=== PATIENT | male | born 1935 | race Caucasian/White ===

== ENCOUNTER 2021-08-13 05:37 | Day surgery (SDC) | payer MEDICARE, BC ==
[~2021-08-13 05:37] MED LIST: Dextrose 5%-0.45% NaCl 1,000 ML IV SCH
[2021-08-13] MEDS ORDERED: Midazolam 1 MG/ML 2 ML SDV IV ONE ×2 (05:38→06:37)
[2021-08-13] MEDS ORDERED: fentaNYL 100 MCG/2 ML SDV IV ONE ×3 (05:38→06:39)
[2021-08-13] MEDS ORDERED: fentaNYL 100 MCG/2 ML SDV ONE (06:13)
[2021-08-13] MEDS ORDERED: Midazolam 1 MG/ML 2 ML SDV ONE (06:13)
== END 2021-08-13 08:57 | disposition home or self-care (01) ==
LOC: DL.ENDO 05:37
PROVIDERS: ATTEND Internal Medicine Gastroenterology
DX: K26.3 Acute duodenal ulcer without hemorrhage or perforation (principal); D50.9 Iron deficiency anemia, unspecified; E66.09 Other obesity due to excess calories; I12.9 Hypertensive chronic kidney disease with stage 1 through stage 4 chronic kidney disease, or unspecified chronic kidney disease; N18.9 Chronic kidney disease, unspecified; E11.22 Type 2 diabetes mellitus with diabetic chronic kidney disease; E78.5 Hyperlipidemia, unspecified; I25.10 Atherosclerotic heart disease of native coronary artery without angina pectoris; M72.2 Plantar fascial fibromatosis; N40.0 Benign prostatic hyperplasia without lower urinary tract symptoms; Z88.8 Allergy status to other drugs, medicaments and biological substances; Z90.49 Acquired absence of other specified parts of digestive tract; Z98.890 Other specified postprocedural states; Z01.812 Encounter for preprocedural laboratory examination; Z20.822 Contact with and (suspected) exposure to COVID-19; Z68.29 Body mass index [BMI] 29.0-29.9, adult
CPT/HCPCS: 43239; 87077; J2250; J3010; J7042; U0002

== ENCOUNTER 2021-09-07 05:37 | Day surgery (SDC) | payer MEDICARE, BC ==
[2021-09-07] MEDS ORDERED: Midazolam 1 MG/ML 2 ML SDV IV ONE ×3 (05:38→06:42)
[2021-09-07] MEDS ORDERED: fentaNYL 100 MCG/2 ML SDV IV ONE ×4 (05:38→06:52)
[2021-09-07] MEDS ORDERED: Midazolam 1 MG/ML 2 ML SDV ONE (05:39)
[2021-09-07] MEDS ORDERED: fentaNYL 100 MCG/2 ML SDV ONE (05:39)
[2021-09-07] MEDS ORDERED: Dextrose 5%-0.45% NaCl 1,000 ML IV SCH (06:05)
== END 2021-09-07 09:00 | disposition home or self-care (01) ==
LOC: DL.ENDO 05:37
PROVIDERS: ATTEND Internal Medicine Gastroenterology
DX: K57.30 Diverticulosis of large intestine without perforation or abscess without bleeding (principal); D50.9 Iron deficiency anemia, unspecified; K64.4 Residual hemorrhoidal skin tags
CPT/HCPCS: 45378; J2250; J3010; J7042

== ENCOUNTER 2022-08-30 10:16 | Emergency (ER) | payer MEDICARE, BC ==
[2022-08-30] MEDS ORDERED: Furosemide 40 MG/4 ML VIAL IV ONE ×2 (11:22→15:15)
[2022-08-30] MEDS ORDERED: Acetaminophen 325 MG Tab PO ONE (11:22)
[2022-08-30] MEDS ORDERED: Pantoprazole 40 MG in Sodium Chloride 0.9% 100 ML IV SCH (11:30)
== END 2022-08-30 19:18 | disposition home or self-care (01) ==
LOC: DL.ED 10:16
DX: E11.22 Type 2 diabetes mellitus with diabetic chronic kidney disease (principal); I12.9 Hypertensive chronic kidney disease with stage 1 through stage 4 chronic kidney disease, or unspecified chronic kidney disease; N18.30 Chronic kidney disease, stage 3 unspecified; D63.1 Anemia in chronic kidney disease; I25.10 Atherosclerotic heart disease of native coronary artery without angina pectoris; E78.00 Pure hypercholesterolemia, unspecified; N40.0 Benign prostatic hyperplasia without lower urinary tract symptoms; E66.9 Obesity, unspecified; Z88.8 Allergy status to other drugs, medicaments and biological substances; Z79.02 Long term (current) use of antithrombotics/antiplatelets; Z79.899 Other long term (current) drug therapy; Z87.891 Personal history of nicotine dependence; Z68.31 Body mass index [BMI] 31.0-31.9, adult
CPT/HCPCS: 36415; 36430; 71046; 80053; 82272; 83605; 83880; 84484; 85014; 85018; 85025; 85610; 85730; 86850; 86900; 86901; 86920; 86922; 93005; 93010; 96365; 96366; 96375; 99284; 99285-25; A9270-GY; C9113; J1940; P9016

== ENCOUNTER 2022-09-02 06:55 | Day surgery (SDC) | payer MEDICARE, BC ==
[~2022-09-02 06:55] MED LIST changes: -Dextrose 5%-0.45% NaCl 1,000 ML IV SCH; +Midazolam 1 MG/ML 2 ML SDV ONE; +fentaNYL 100 MCG/2 ML SDV ONE
[2022-09-02] MEDS ORDERED: fentaNYL 100 MCG/2 ML SDV IV ONE ×2 (06:56→08:12)
[2022-09-02] MEDS ORDERED: Midazolam 1 MG/ML 2 ML SDV IV ONE ×2 (06:56→08:12)
[2022-09-02] MEDS ORDERED: Dextrose 5%-0.45% NaCl 1,000 ML IV SCH (07:00)
== END 2022-09-02 10:15 | disposition home or self-care (01) ==
LOC: DL.ENDO 06:55
PROVIDERS: ATTEND Internal Medicine Gastroenterology
DX: K29.50 Unspecified chronic gastritis without bleeding (principal); I12.9 Hypertensive chronic kidney disease with stage 1 through stage 4 chronic kidney disease, or unspecified chronic kidney disease; N18.9 Chronic kidney disease, unspecified; E11.22 Type 2 diabetes mellitus with diabetic chronic kidney disease; D63.1 Anemia in chronic kidney disease; E78.5 Hyperlipidemia, unspecified; I25.10 Atherosclerotic heart disease of native coronary artery without angina pectoris; N40.0 Benign prostatic hyperplasia without lower urinary tract symptoms; D50.9 Iron deficiency anemia, unspecified; Z88.8 Allergy status to other drugs, medicaments and biological substances; Z95.5 Presence of coronary angioplasty implant and graft; Z98.890 Other specified postprocedural states
CPT/HCPCS: 43239; 87077; 88305; J2250; J3010; J7042

== ENCOUNTER 2022-09-13 08:18 | Emergency (ER) | payer MEDICARE, BC ==
[2022-09-13] MEDS ORDERED: Sodium Chloride 0.9% 10 ML Syringe FLUSH PRN (08:33)
[2022-09-13 09:19] LABS: CORONAVIRUS COVID-19 NAA NEGATIVE (NEGATIVE); RESPIRATORY SYNCYTIAL VIR NAA NEGATIVE (NEGATIVE)
[2022-09-13 09:20] LABS: CHLORIDE,CL 102 mmol/L (98-107); SODIUM,NA 138 mmol/L (136-145)
[2022-09-13 09:28] LABS: ESTIMATED GFR 25 mL/min (>=60)
[2022-09-13 09:50] LABS: PTT,PARTIAL THROMBOPLSTIN TIME 29.2 SEC (22.0-34.0)
== END 2022-09-13 10:39 | disposition home or self-care (01) ==
LOC: DL.ED 10:39
DX: F41.9 Anxiety disorder, unspecified (principal); G47.00 Insomnia, unspecified; I25.10 Atherosclerotic heart disease of native coronary artery without angina pectoris; E78.00 Pure hypercholesterolemia, unspecified; E11.22 Type 2 diabetes mellitus with diabetic chronic kidney disease; I12.9 Hypertensive chronic kidney disease with stage 1 through stage 4 chronic kidney disease, or unspecified chronic kidney disease; N18.9 Chronic kidney disease, unspecified; D63.1 Anemia in chronic kidney disease; N40.0 Benign prostatic hyperplasia without lower urinary tract symptoms; E66.9 Obesity, unspecified; Z68.30 Body mass index [BMI] 30.0-30.9, adult; Z88.8 Allergy status to other drugs, medicaments and biological substances; Z79.02 Long term (current) use of antithrombotics/antiplatelets; Z79.899 Other long term (current) drug therapy; Z20.822 Contact with and (suspected) exposure to COVID-19
CPT/HCPCS: 0241U; 36415; 71045; 80053; 82607; 83605; 83735; 83880; 84145; 84443; 84484; 85025; 85610; 85730; 86140; 93005; 93010; 99284; J3490

== ENCOUNTER 2023-01-29 06:53 | Emergency (ER) | payer MEDICARE, BC ==
[2023-01-29] MEDS ORDERED: Sodium Chloride 0.9% 10 ML Syringe FLUSH PRN (07:06)
[2023-01-29] MEDS ORDERED: Nitroglycerin 0.4 MG Tab.SL SL PRN (07:08)
[2023-01-29] MEDS ORDERED: Aspirin 81 MG Tab.Chew PO ONE (07:08)
[2023-01-29 07:14] LABS: BASOPHILS PERCENT AUTO 0.8 % (0.0-1.0); EOSINOPHILS PERCENT AUTO 4.2 % (1.0-3.0); HEMATOCRIT 30.9 % (40.0-54.0); HEMOGLOBIN 9.9 g/dL (14.0-18.0); LYMPHOCYTES PERCENT AUTO 29.2 % (20.5-50.1); MEAN CORPUSCULAR HEMOGLOBIN 30.3 pg (27.0-34.0); MEAN CORPUSCULAR VOLUME 94.5 fL (80-100); MONOCYTES PERCENT AUTO 10.8 % (2-8); PLATELET COUNT,PLT 195 10^3/uL (150-450); RED BLOOD CELL COUNT 3.27 10^6/uL (4.6-6.2); WHITE BLOOD CELL COUNT,WBC 5.9 10^3/uL (5.0-10.0)
[2023-01-29 07:28] LABS: A/G RATIO 0.8; ALBUMIN 3.4 g/dL (3.4-5.0); BILIRUBIN TOTAL 0.4 mg/dL (0.2-1.0); BUN/CREATININE RATIO 17.7 (No establ ref range); CALCIUM 8.7 mg/dL (8.5-10.1); CREATININE 2.03 mg/dL (0.70-1.30); EST CRCL DRUG DOSING (CG) 23.97 mL/min; PROTEIN TOTAL,TP 7.7 g/dL (6.4-8.2)
[2023-01-29] MEDS ORDERED: GI Cocktail Oral Solution 30 ML PO ONE (07:41)
== END 2023-01-29 09:58 | disposition home or self-care (01) ==
LOC: DL.ED 06:53
DX: R07.2 Precordial pain (principal); R06.02 Shortness of breath; I25.10 Atherosclerotic heart disease of native coronary artery without angina pectoris; I12.9 Hypertensive chronic kidney disease with stage 1 through stage 4 chronic kidney disease, or unspecified chronic kidney disease; E11.22 Type 2 diabetes mellitus with diabetic chronic kidney disease; N18.9 Chronic kidney disease, unspecified; E66.9 Obesity, unspecified; Z68.28 Body mass index [BMI] 28.0-28.9, adult; Z88.8 Allergy status to other drugs, medicaments and biological substances; Z79.899 Other long term (current) drug therapy; Z79.84 Long term (current) use of oral hypoglycemic drugs; Z79.02 Long term (current) use of antithrombotics/antiplatelets; Z20.822 Contact with and (suspected) exposure to COVID-19
CPT/HCPCS: 36415; 71045; 80053; 83690; 83880; 84484; 85025; 87804; 93005; 99285; A9270; U0002; J3490

== ENCOUNTER 2023-02-18 09:05 | Inpatient (IN) | payer MEDICARE, BC ==
[2023-02-18] MEDS: Sodium Chloride 0.9% 10 ML Syringe FLUSH PRN ×5 (09:16→22:39)
[2023-02-18 09:26] LABS: BASOPHILS PERCENT AUTO 0.2 % (0.0-1.0); HEMATOCRIT 30.5 % (40.0-54.0); HEMOGLOBIN 9.6 g/dL (14.0-18.0); LYMPHOCYTES PERCENT AUTO 13.8 % (20.5-50.1); MEAN CORPUSCULAR HEMOGLOBIN 28.2 pg (27.0-34.0); MEAN CORPUSCULAR HGB CONC 31.5 g/dL (33.0-35.0); MEAN CORPUSCULAR VOLUME 89.4 fL (80-100); MONOCYTES PERCENT AUTO 9.2 % (2-8); NEUTROPHILS PERCENT AUTO 75.8 % (42.2-75.2); PLATELET COUNT,PLT 364 10^3/uL (150-450); RED BLOOD CELL COUNT 3.41 10^6/uL (4.6-6.2); WHITE BLOOD CELL COUNT,WBC 8.6 10^3/uL (5.0-10.0)
[2023-02-18 09:47] LABS: INR 1.4 (0.9-1.2); PROTHROMBIN TIME 13.7 SEC (9.0-12.0); PTT,PARTIAL THROMBOPLSTIN TIME 34.8 SEC (22.0-34.0)
[2023-02-18 09:48] LABS: LACTIC ACID 1.2 mmol/L (0.4-2.0)
[2023-02-18 09:57] LABS: ALBUMIN 2.7 g/dL (3.4-5.0); ANION GAP 13.6 mEq/L (7-13); BILIRUBIN TOTAL 0.6 mg/dL (0.2-1.0); BUN/CREATININE RATIO 16.2 (No establ ref range); CALCIUM 8.3 mg/dL (8.5-10.1); CREATININE 2.41 mg/dL (0.70-1.30); EST CRCL DRUG DOSING (CG) 20.89 mL/min; MAGNESIUM 2.2 mg/dL (1.8-2.4); POTASSIUM,K 3.6 mmol/L (3.5-5.1); PROTEIN TOTAL,TP 7.5 g/dL (6.4-8.2)
[2023-02-18 09:59] LABS: A/G RATIO 0.56
[2023-02-18 10:00] LABS: C-REACTIVE PROTEIN 16.8 mg/dL (0.0-0.9)
[2023-02-18] MEDS ORDERED: Ampicillin/Sulbactam Na 3 GM in Sodium Chloride 0.9% 100 ML IV ONE (10:24)
[2023-02-18] MEDS ORDERED: Bumetanide 1 MG/4 ML MDV IVPUSH ONE (10:24)
[2023-02-18] MEDS ORDERED: Magnesium Hydroxide 400 MG/5 ML Susp 30 ML Cup PO PRN (10:50)
[2023-02-18] MEDS ORDERED: Acetaminophen 325 MG Tab PO PRN (10:50)
[2023-02-18] MEDS ORDERED: Ondansetron 4 MG/2 ML SDV IVPUSH PRN (10:50)
[2023-02-18] MEDS ORDERED: Acetaminophen/oxyCODONE 325-5 MG Tab PO PRN (10:50)
[2023-02-18] MEDS ORDERED: Bisacodyl 5 MG Tab PO PRN (10:50)
[2023-02-18] MEDS ORDERED: Albuterol/Ipratropium 3.0-0.5 MG/3 ML Neb Soln NEB PRN (10:50)
[2023-02-18] MEDS ORDERED: HYDROmorphone 0.5 MG/0.5 ML Syringe IVPUSH PRN (10:50)
[2023-02-18] MEDS ORDERED: Polyethylene Glycol 3350 Powder 17 GM Packet PO PRN (10:50)
[2023-02-18] MEDS ORDERED: guaiFENesin/Dextromethorphan 100-10 MG/5 ML Soln 5 ML Cup PO PRN (10:54)
[2023-02-18] MEDS ORDERED: Nitroglycerin 0.4 MG Tab.SL SL SCH (11:00)
[2023-02-18 11:33] LABS: APPEARANCE,URINE CLEAR (CLEAR); BILIRUBIN,URINE NEGATIVE (NEGATIVE); COLOR,URINE YELLOW (YELLOW); GLUCOSE,URINE 100 (NEGATIVE); KETONES,URINE NEGATIVE (NEGATIVE); LEUKOCYTE ESTERASE,URINE NEGATIVE (NEGATIVE); NITRITE,URINE NEGATIVE (NEGATIVE); OCCULT BLOOD,URINE NEGATIVE (NEGATIVE); PH,URINE 5.5 (5.0-9.0); PROTEIN,URINE 100 (NEGATIVE); UROBILINOGEN,URINE 0.2 mg/dL (0.2-1.0)
[2023-02-18 11:45] LABS: AMORPHOUS SEDIMENT,URINE RARE /HPF (NOT SEEN); BACTERIA,URINE RARE /HPF (0-FEW/HPF); EPITHELIAL CELLS,URINE RARE /HPF (NOT SEEN); RBC,URINE 0-5 /HPF (0-5); WBC,URINE 0-5 /HPF (0-5/HPF)
[2023-02-18] MEDS ORDERED: HYDRALAZINE 50 MG PO SCH (21:00)
[2023-02-18] MEDS ORDERED: Glimepiride 2 MG Tab PO SCH (21:00)
[2023-02-18] MEDS ORDERED: Melatonin 3 MG Tab PO PRN (21:37)
[2023-02-18] MEDS ORDERED: Flumazenil 0.1 MG/ML 5 ML MDV IVPUSH PRN (21:37)
[2023-02-18] MEDS ORDERED: LORazepam 2 MG/ML SDV IVPUSH PRN ×2 (21:37→22:35)
[2023-02-18] MEDS: traZODone 50 MG Tab PO SCH (21:46)
[2023-02-18] MEDS: amLODIPine 5 MG Tab PO SCH (21:47)
[2023-02-18] MEDS: hydrALAZINE 25 MG Tab PO SCH (22:09)
[2023-02-18] MEDS: Ampicillin/Sulbactam Na 1.5 GM in Sodium Chloride 0.9% 100 ML IV SCH (22:12)
[2023-02-19] MEDS: Sodium Chloride 0.9% 10 ML Syringe FLUSH PRN (04:10)
[2023-02-19] MEDS: Ampicillin/Sulbactam Na 1.5 GM in Sodium Chloride 0.9% 100 ML IV SCH ×4 (04:10→21:32)
[2023-02-19 06:46] LABS: BASOPHILS PERCENT AUTO 0.4 % (0.0-1.0); EOSINOPHILS PERCENT AUTO 2.2 % (1.0-3.0); HEMATOCRIT 28.5 % (40.0-54.0); HEMOGLOBIN 8.7 g/dL (14.0-18.0); LYMPHOCYTES PERCENT AUTO 12.9 % (20.5-50.1); MEAN CORPUSCULAR HEMOGLOBIN 27.5 pg (27.0-34.0); MEAN CORPUSCULAR HGB CONC 30.5 g/dL (33.0-35.0); MEAN CORPUSCULAR VOLUME 90.2 fL (80-100); MONOCYTES PERCENT AUTO 10.6 % (2-8); NEUTROPHILS PERCENT AUTO 73.9 % (42.2-75.2); PLATELET COUNT,PLT 307 10^3/uL (150-450); RED BLOOD CELL COUNT 3.16 10^6/uL (4.6-6.2); WHITE BLOOD CELL COUNT,WBC 6.8 10^3/uL (5.0-10.0)
[2023-02-19 07:27] LABS: ALBUMIN 2.4 g/dL (3.4-5.0); ANION GAP 9.7 mEq/L (7-13); BILIRUBIN TOTAL 0.4 mg/dL (0.2-1.0); BUN/CREATININE RATIO 15.5 (No establ ref range); CALCIUM 8.3 mg/dL (8.5-10.1); CREATININE 2.06 mg/dL (0.70-1.30); EST CRCL DRUG DOSING (CG) 24.44 mL/min; MAGNESIUM 2.1 mg/dL (1.8-2.4); POTASSIUM,K 3.7 mmol/L (3.5-5.1); PROTEIN TOTAL,TP 6.7 g/dL (6.4-8.2); T4 FREE 1.33 ng/dL (0.76-1.46); TSH ULTRASENSITIVE 0.66 uIU/mL (0.36-3.74)
[2023-02-19 07:38] LABS: A/G RATIO 0.56
[2023-02-19] MEDS: hydrALAZINE 25 MG Tab PO SCH ×2 (09:42→21:28)
[2023-02-19] MEDS: Metoprolol Succinate 25 MG Tab.ER PO SCH (09:43)
[2023-02-19] MEDS: Sertraline 50 MG Tab PO SCH (09:44)
[2023-02-19] MEDS: Isosorbide Mononitrate 30 MG Tab.ER PO SCH (09:45)
[2023-02-19] MEDS: Omeprazole 20 MG Cap.CR PO SCH (09:45)
[2023-02-19] MEDS: Glimepiride 2 MG Tab PO SCH ×2 (09:45→16:15)
[2023-02-19] MEDS: Calcium Carbonate/Vitamin D3 1250 MG-5 MCG Tab PO SCH (09:45)
[2023-02-19] MEDS: Multivitamin Tab PO SCH (09:45)
[2023-02-19] MEDS ORDERED: Lidocaine 1% 5 ML VIAL ONE (11:50)
[2023-02-19] MEDS ORDERED: EPINEPHrine 1:10,000 1 MG/10 ML Syringe ONE (11:51)
[2023-02-19] MEDS ORDERED: Bisacodyl 10 MG Supp RECTAL PRN (12:33)
[2023-02-19] MEDS ORDERED: Ampicillin/Sulbactam Na 1.5 GM in Sodium Chloride 0.9% 100 ML IV SCH (20:00)
[2023-02-19] MEDS: amLODIPine 5 MG Tab PO SCH (21:27)
[2023-02-19] MEDS: Sennosides/Docusate Sodium 50-8.6 MG Tab PO SCH (21:28)
[2023-02-19] MEDS: traZODone 50 MG Tab PO SCH (21:29)
[2023-02-20] MEDS: Ampicillin/Sulbactam Na 1.5 GM in Sodium Chloride 0.9% 100 ML IV SCH ×4 (03:52→21:22)
[2023-02-20 06:25] LABS: BASOPHILS PERCENT AUTO 0.5 % (0.0-1.0); EOSINOPHILS PERCENT AUTO 2.9 % (1.0-3.0); HEMATOCRIT 28.5 % (40.0-54.0); HEMOGLOBIN 8.7 g/dL (14.0-18.0); LYMPHOCYTES PERCENT AUTO 20.7 % (20.5-50.1); MEAN CORPUSCULAR HEMOGLOBIN 27.7 pg (27.0-34.0); MEAN CORPUSCULAR HGB CONC 30.5 g/dL (33.0-35.0); MEAN CORPUSCULAR VOLUME 90.8 fL (80-100); MONOCYTES PERCENT AUTO 9.7 % (2-8); NEUTROPHILS PERCENT AUTO 66.2 % (42.2-75.2); PLATELET COUNT,PLT 292 10^3/uL (150-450); RED BLOOD CELL COUNT 3.14 10^6/uL (4.6-6.2); WHITE BLOOD CELL COUNT,WBC 6.2 10^3/uL (5.0-10.0)
[2023-02-20 06:46] LABS: CALCIUM 8.3 mg/dL (8.5-10.1); CREATININE 1.98 mg/dL (0.70-1.30); EST CRCL DRUG DOSING (CG) 25.43 mL/min
[2023-02-20] MEDS: Glimepiride 2 MG Tab PO SCH ×2 (09:26→20:46)
[2023-02-20] MEDS: Sertraline 50 MG Tab PO SCH (09:26)
[2023-02-20] MEDS: Calcium Carbonate/Vitamin D3 1250 MG-5 MCG Tab PO SCH (09:36)
[2023-02-20] MEDS: Isosorbide Mononitrate 30 MG Tab.ER PO SCH (09:36)
[2023-02-20] MEDS: Omeprazole 20 MG Cap.CR PO SCH (09:37)
[2023-02-20] MEDS: Multivitamin Tab PO SCH (09:37)
[2023-02-20] MEDS: Metoprolol Succinate 25 MG Tab.ER PO SCH (12:40)
[2023-02-20] MEDS: hydrALAZINE 25 MG Tab PO SCH ×2 (12:40→20:54)
[2023-02-20] MEDS: amLODIPine 5 MG Tab PO SCH (20:54)
[2023-02-20] MEDS: Sennosides/Docusate Sodium 50-8.6 MG Tab PO SCH (20:55)
[2023-02-20] MEDS: traZODone 50 MG Tab PO SCH (20:55)
[2023-02-20] MEDS: Sodium Chloride 0.9% 10 ML Syringe FLUSH PRN (20:55)
[2023-02-21] MEDS: Ampicillin/Sulbactam Na 1.5 GM in Sodium Chloride 0.9% 100 ML IV SCH ×2 (03:59→09:43)
[2023-02-21 06:47] LABS: BASOPHILS PERCENT AUTO 0.3 % (0.0-1.0); EOSINOPHILS PERCENT AUTO 4.2 % (1.0-3.0); HEMATOCRIT 28.3 % (40.0-54.0); HEMOGLOBIN 8.5 g/dL (14.0-18.0); LYMPHOCYTES PERCENT AUTO 21.3 % (20.5-50.1); MEAN CORPUSCULAR HEMOGLOBIN 27.1 pg (27.0-34.0); MEAN CORPUSCULAR VOLUME 90.1 fL (80-100); MONOCYTES PERCENT AUTO 8.6 % (2-8); NEUTROPHILS PERCENT AUTO 65.6 % (42.2-75.2); PLATELET COUNT,PLT 266 10^3/uL (150-450); RED BLOOD CELL COUNT 3.14 10^6/uL (4.6-6.2)
[2023-02-21 06:59] LABS: C-REACTIVE PROTEIN 6.5 mg/dL (0.0-0.9); CALCIUM 8.1 mg/dL (8.5-10.1); CREATININE 1.89 mg/dL (0.70-1.30); EST CRCL DRUG DOSING (CG) 26.64 mL/min
[2023-02-21] MEDS: Metoprolol Succinate 25 MG Tab.ER PO SCH (09:06)
[2023-02-21] MEDS: Sertraline 50 MG Tab PO SCH (09:06)
[2023-02-21] MEDS: Calcium Carbonate/Vitamin D3 1250 MG-5 MCG Tab PO SCH (09:07)
[2023-02-21] MEDS: Omeprazole 20 MG Cap.CR PO SCH (09:07)
[2023-02-21] MEDS: Isosorbide Mononitrate 30 MG Tab.ER PO SCH (09:07)
[2023-02-21] MEDS: Multivitamin Tab PO SCH (09:07)
[2023-02-21] MEDS: Glimepiride 2 MG Tab PO SCH (09:07)
[2023-02-21] MEDS: hydrALAZINE 25 MG Tab PO SCH (09:13)
[2023-02-22 15:46] LABS: BASO'S 0 x10-3 ul; EO'S 6 x10-3 ul; LYMPH'S 61 x10-3 ul; MONO'S 79 x10-3 ul; OTHER 336 x10-3 ul; PMN'S 128 x10-3 ul
== END 2023-02-21 16:45 | disposition home or self-care (01) | DRG 193 ==
LOC: DL.ED 09:05 → DL.MS 10:29 → UNDOADMIN 10:29
PROVIDERS: ADMIT Internal Medicine; ATTEND Internal Medicine
PROC: 0W9B3ZZ Drainage of Left Pleural Cavity, Percutaneous Approach (ICD-10-PCS; principal; 2023-02-19)
PROC: 0W993ZZ Drainage of Right Pleural Cavity, Percutaneous Approach (ICD-10-PCS; 2023-02-19)
DX: J18.9 Pneumonia, unspecified organism (principal); J96.01 Acute respiratory failure with hypoxia; I13.0 Hypertensive heart and chronic kidney disease with heart failure and stage 1 through stage 4 chronic kidney disease, or unspecified chronic kidney disease; J90 Pleural effusion, not elsewhere classified; J98.11 Atelectasis; R09.02 Hypoxemia; E11.9 Type 2 diabetes mellitus without complications; D68.9 Coagulation defect, unspecified; I25.110 Atherosclerotic heart disease of native coronary artery with unstable angina pectoris; D50.9 Iron deficiency anemia, unspecified; E11.65 Type 2 diabetes mellitus with hyperglycemia; I50.9 Heart failure, unspecified; I25.10 Atherosclerotic heart disease of native coronary artery without angina pectoris; N18.30 Chronic kidney disease, stage 3 unspecified; D63.1 Anemia in chronic kidney disease; E11.22 Type 2 diabetes mellitus with diabetic chronic kidney disease; E11.40 Type 2 diabetes mellitus with diabetic neuropathy, unspecified; N40.0 Benign prostatic hyperplasia without lower urinary tract symptoms; H91.90 Unspecified hearing loss, unspecified ear; F32.9 Major depressive disorder, single episode, unspecified; E78.00 Pure hypercholesterolemia, unspecified; E66.9 Obesity, unspecified; R79.82 Elevated C-reactive protein (CRP); G47.00 Insomnia, unspecified; I48.91 Unspecified atrial fibrillation; Z68.28 Body mass index [BMI] 28.0-28.9, adult; Z95.5 Presence of coronary angioplasty implant and graft; Z99.81 Dependence on supplemental oxygen; Z79.02 Long term (current) use of antithrombotics/antiplatelets; Z79.899 Other long term (current) drug therapy; Z88.8 Allergy status to other drugs, medicaments and biological substances; Z90.49 Acquired absence of other specified parts of digestive tract; Z98.890 Other specified postprocedural states
CPT/HCPCS: 36415; 71045; 80048; 80053; 81001; 82306; 83605; 83735; 83880; 84145; 84439; 84443; 84484; 85025; 85610; 85730; 86140; 87070; 88112; 88305; 89051; 93005; 93010; 94010; 94060; 94640; 94667; 97165-GO; 99223; 99233; 99238; 99285; A9270-GY; J0295; J1170; J2060; J3490; J7620-GY

== ENCOUNTER 2023-03-27 19:50 | Emergency (ER) | payer MEDICARE, BC ==
[2023-03-27] MEDS ORDERED: Sodium Chloride 0.9% 10 ML Syringe FLUSH PRN (19:56)
[2023-03-27 20:17] LABS: BASOPHILS PERCENT AUTO 0.5 % (0.0-1.0); EOSINOPHILS PERCENT AUTO 2.3 % (1.0-3.0); HEMATOCRIT 26.6 % (40.0-54.0); HEMOGLOBIN 8.1 g/dL (14.0-18.0); MEAN CORPUSCULAR HEMOGLOBIN 26.1 pg (27.0-34.0); MEAN CORPUSCULAR HGB CONC 30.5 g/dL (33.0-35.0); MEAN CORPUSCULAR VOLUME 85.8 fL (80-100); NEUTROPHILS PERCENT AUTO 74.2 % (42.2-75.2); PLATELET COUNT,PLT 188 10^3/uL (150-450); WHITE BLOOD CELL COUNT,WBC 6.5 10^3/uL (5.0-10.0)
[2023-03-27 20:39] LABS: LACTIC ACID 0.9 mmol/L (0.4-2.0)
[2023-03-27 20:42] LABS: ALANINE AMINOTRANSFERASE,ALT 10 U/L (16-63); ALBUMIN 2.7 g/dL (3.4-5.0); ALKALINE PHOSPHATASE 71 U/L (46-116); ANION GAP 10.4 mEq/L (7-13); ASPARTATE AMNIOTRANSFERASE,AST 11 U/L (15-37); BILIRUBIN TOTAL 0.8 mg/dL (0.2-1.0); BLOOD UREA NITROGEN,BUN 26 mg/dL (7-18); BUN/CREATININE RATIO 14.5 (No establ ref range); CALCIUM 8.3 mg/dL (8.5-10.1); CARBON DIOXIDE,CO2 29 mmol/L (21-32); CHLORIDE,CL 102 mmol/L (98-107); CREATININE 1.79 mg/dL (0.70-1.30); GLUCOSE RANDOM 287 mg/dL (70-99); POTASSIUM,K 4.4 mmol/L (3.5-5.1); SODIUM,NA 137 mmol/L (136-145)
[2023-03-27 20:43] LABS: A/G RATIO 0.63; C-REACTIVE PROTEIN 12.3 mg/dL (0.0-0.9); ESTIMATED GFR 36 mL/min (>=60)
[2023-03-27 20:47] LABS: B-TYPE NATRIURETIC PEPTIDE,BNP 954 pg/ml (0-100)
== END 2023-03-27 21:30 | disposition home or self-care (01) ==
LOC: DL.ED 19:50
DX: J81.0 Acute pulmonary edema (principal); I13.0 Hypertensive heart and chronic kidney disease with heart failure and stage 1 through stage 4 chronic kidney disease, or unspecified chronic kidney disease; E11.22 Type 2 diabetes mellitus with diabetic chronic kidney disease; I50.9 Heart failure, unspecified; N18.9 Chronic kidney disease, unspecified; E78.00 Pure hypercholesterolemia, unspecified; I25.10 Atherosclerotic heart disease of native coronary artery without angina pectoris; E66.9 Obesity, unspecified; Z68.30 Body mass index [BMI] 30.0-30.9, adult; Z88.8 Allergy status to other drugs, medicaments and biological substances; Z79.84 Long term (current) use of oral hypoglycemic drugs
CPT/HCPCS: 36415; 71045; 80053; 83605; 83880; 84484; 85025; 86140; 93005; 93010; 99284; 99285

== ENCOUNTER 2023-04-15 16:00 | Inpatient (IN) | payer MEDICARE, BC ==
[2023-04-15] MEDS ORDERED: Sodium Chloride 0.9% 10 ML Syringe FLUSH PRN (18:33)
[2023-04-15] MEDS ORDERED: Sodium Chloride 0.9% 1,000 ML IV ONE (18:33)
[2023-04-15] MEDS ORDERED: Naloxone 2 MG/2 ML Syringe IVPUSH PRN (18:48)
[2023-04-15] MEDS ORDERED: fentaNYL 100 MCG/2 ML SDV IVPUSH ONE (18:48)
[2023-04-15 18:51] LABS: BASOPHILS PERCENT AUTO 0.3 % (0.0-1.0); EOSINOPHILS PERCENT AUTO 3.6 % (1.0-3.0); HEMATOCRIT 28.1 % (40.0-54.0); HEMOGLOBIN 8.8 g/dL (14.0-18.0); LYMPHOCYTES PERCENT AUTO 16.2 % (20.5-50.1); MEAN CORPUSCULAR HGB CONC 31.3 g/dL (33.0-35.0); MEAN CORPUSCULAR VOLUME 82.9 fL (80-100); MONOCYTES PERCENT AUTO 9.7 % (2-8); NEUTROPHILS PERCENT AUTO 70.2 % (42.2-75.2); PLATELET COUNT,PLT 194 10^3/uL (150-450); RED BLOOD CELL COUNT 3.39 10^6/uL (4.6-6.2); WHITE BLOOD CELL COUNT,WBC 6.2 10^3/uL (5.0-10.0)
[2023-04-15 19:10] LABS: INR 1.1 (0.9-1.2); PROTHROMBIN TIME 11.3 SEC (9.0-12.0); PTT,PARTIAL THROMBOPLSTIN TIME 32.4 SEC (22.0-34.0)
[2023-04-15 19:17] LABS: A/G RATIO 0.65; ALANINE AMINOTRANSFERASE,ALT 12 U/L (16-63); ALKALINE PHOSPHATASE 89 U/L (46-116); AMYLASE 155 U/L (25-115); ANION GAP 9.5 mEq/L (7-13); ASPARTATE AMNIOTRANSFERASE,AST 13 U/L (15-37); BILIRUBIN TOTAL 0.5 mg/dL (0.2-1.0); BLOOD UREA NITROGEN,BUN 33 mg/dL (7-18); BUN/CREATININE RATIO 18.8 (No establ ref range); C-REACTIVE PROTEIN 3.17 ng/dL (<=0.30); CALCIUM 8.9 mg/dL (8.5-10.1); CARBON DIOXIDE,CO2 34 mmol/L (21-32); CHLORIDE,CL 93 mmol/L (98-107); CREATININE 1.76 mg/dL (0.70-1.30); EST CRCL DRUG DOSING (CG) 30.53 mL/min; ESTIMATED GFR 37 mL/min (>=60); GLUCOSE RANDOM 302 mg/dL (70-99); LIPASE > 250 U/L (16-77); MAGNESIUM 1.8 mg/dL (1.8-2.4); POTASSIUM,K 4.5 mmol/L (3.5-5.1); PROTEIN TOTAL,TP 7.6 g/dL (6.4-8.2); SODIUM,NA 132 mmol/L (136-145)
[2023-04-15] MEDS ORDERED: Morphine 2 MG/ML SYRINGE IVPUSH ONE (20:09)
[2023-04-15 20:54] LABS: CHOLESTEROL HDL 39 mg/dL (40-59); CHOLESTEROL LDL CALCULATED 68 mg/dL (0-100); CHOLESTEROL TOTAL 123 mg/dL (0-199); LACTATE DEHYDROGENASE,LDH 154 U/L (85-227); TRIGLYCERIDES 79 mg/dL (0-149)
[2023-04-15] MEDS ORDERED: Metoprolol Tartrate 5 MG/5 ML SDV IVPUSH PRN (21:01)
[2023-04-15] MEDS ORDERED: Albuterol/Ipratropium 3.0-0.5 MG/3 ML Neb Soln NEB PRN (21:02)
[2023-04-15] MEDS ORDERED: Magnesium Hydroxide 400 MG/5 ML Susp 30 ML Cup PO PRN (21:02)
[2023-04-15] MEDS ORDERED: Sennosides/Docusate Sodium 50-8.6 MG Tab PO PRN (21:02)
[2023-04-15] MEDS ORDERED: Acetaminophen 325 MG Tab PO PRN (21:02)
[2023-04-15] MEDS ORDERED: Polyethylene Glycol 3350 Powder 17 GM Packet PO PRN (21:02)
[2023-04-15] MEDS ORDERED: Ondansetron 4 MG/2 ML SDV IVPUSH PRN (21:02)
[2023-04-15] MEDS ORDERED: Acetaminophen/HYDROcodone 325-10 MG Tab PO PRN (21:02)
[2023-04-15] MEDS ORDERED: Sodium Chloride 0.9% 1,000 ML IV SCH (21:15)
[2023-04-15] MEDS ORDERED: Glucagon,Human Recombinant 1 MG Vial IM PRN (21:20)
[2023-04-15] MEDS ORDERED: 50% Dextrose in Water 50 ML Syringe IVPUSH PRN (21:20)
[2023-04-15] MEDS ORDERED: traZODone 50 MG Tab PO ONE (21:42)
[2023-04-15] MEDS ORDERED: fentaNYL 100 MCG/2 ML SDV IVPUSH PRN (21:47)
[2023-04-15] MEDS: Morphine 2 MG/ML SYRINGE IVPUSH PRN (21:55)
[2023-04-16] MEDS: Morphine 2 MG/ML SYRINGE IVPUSH PRN (00:35)
[2023-04-16] MEDS: hydrALAZINE 20 MG/ML SDV IVPUSH PRN ×2 (00:38→05:56)
[2023-04-16] MEDS: Insulin Lispro 100 Units/ML 3 ML Vial SUBCUT SCH ×4 (00:42→17:13)
[2023-04-16 00:45] LABS: APPEARANCE,URINE CLEAR (CLEAR); BILIRUBIN,URINE NEGATIVE (NEGATIVE); COLOR,URINE YELLOW (YELLOW); GLUCOSE,URINE 100 (NEGATIVE); KETONES,URINE NEGATIVE (NEGATIVE); LEUKOCYTE ESTERASE,URINE NEGATIVE (NEGATIVE); NITRITE,URINE NEGATIVE (NEGATIVE); OCCULT BLOOD,URINE NEGATIVE (NEGATIVE); PH,URINE 6.5 (5.0-9.0); PROTEIN,URINE 30 (NEGATIVE); UROBILINOGEN,URINE 0.2 mg/dL (0.2-1.0)
[2023-04-16 00:58] LABS: BACTERIA,URINE FEW /HPF (0-FEW/HPF); EPITHELIAL CELLS,URINE OCCASIONAL /HPF (NOT SEEN); HYALINE CASTS,URINE RARE; MUCUS,URINE OCCASIONAL /LPF (NOT SEEN); RBC,URINE 0-5 /HPF (0-5); WBC,URINE NOT SEEN /HPF (0-5/HPF)
[2023-04-16 06:17] LABS: BASOPHILS PERCENT AUTO 0.3 % (0.0-1.0); EOSINOPHILS PERCENT AUTO 3.8 % (1.0-3.0); HEMATOCRIT 26.9 % (40.0-54.0); HEMOGLOBIN 8.4 g/dL (14.0-18.0); LYMPHOCYTES PERCENT AUTO 14.7 % (20.5-50.1); MEAN CORPUSCULAR HEMOGLOBIN 25.6 pg (27.0-34.0); MEAN CORPUSCULAR HGB CONC 31.2 g/dL (33.0-35.0); NEUTROPHILS PERCENT AUTO 70.2 % (42.2-75.2); PLATELET COUNT,PLT 170 10^3/uL (150-450); RED BLOOD CELL COUNT 3.28 10^6/uL (4.6-6.2); WHITE BLOOD CELL COUNT,WBC 5.8 10^3/uL (5.0-10.0)
[2023-04-16 06:39] LABS: ALBUMIN 2.5 g/dL (3.4-5.0); ANION GAP 8.1 mEq/L (7-13); BILIRUBIN TOTAL 0.5 mg/dL (0.2-1.0); BUN/CREATININE RATIO 18.6 (No establ ref range); C-REACTIVE PROTEIN 3.06 ng/dL (<=0.30); CALCIUM 8.4 mg/dL (8.5-10.1); CREATININE 1.4 mg/dL (0.70-1.30); EST CRCL DRUG DOSING (CG) 35.96 mL/min; MAGNESIUM 1.6 mg/dL (1.8-2.4); POTASSIUM,K 4.1 mmol/L (3.5-5.1); PROTEIN TOTAL,TP 6.6 g/dL (6.4-8.2)
[2023-04-16 06:45] LABS: A/G RATIO 0.61
[2023-04-16] MEDS ORDERED: Magnesium Sulfate/Water 2 GM in Premix Bag 1 BAG IV ONE (08:23)
[2023-04-16] MEDS: Metoprolol Succinate 25 MG Tab.ER PO SCH (08:49)
[2023-04-16] MEDS ORDERED: Dextrose 5%-0.9% NaCl 1,000 ML IV SCH (19:45)
[2023-04-17] MEDS: Insulin Lispro 100 Units/ML 3 ML Vial SUBCUT SCH ×4 (01:01→17:34)
[2023-04-17 06:18] LABS: BASOPHILS PERCENT AUTO 0.6 % (0.0-1.0); EOSINOPHILS PERCENT AUTO 4.8 % (1.0-3.0); HEMATOCRIT 25.7 % (40.0-54.0); HEMOGLOBIN 8.4 g/dL (14.0-18.0); MEAN CORPUSCULAR HEMOGLOBIN 27.1 pg (27.0-34.0); MEAN CORPUSCULAR HGB CONC 32.7 g/dL (33.0-35.0); MEAN CORPUSCULAR VOLUME 82.9 fL (80-100); MONOCYTES PERCENT AUTO 9.1 % (2-8); NEUTROPHILS PERCENT AUTO 65.5 % (42.2-75.2); PLATELET COUNT,PLT 167 10^3/uL (150-450); WHITE BLOOD CELL COUNT,WBC 5.4 10^3/uL (5.0-10.0)
[2023-04-17 06:36] LABS: ALBUMIN 2.2 g/dL (3.4-5.0); BILIRUBIN TOTAL 0.4 mg/dL (0.2-1.0); BUN/CREATININE RATIO 16.3 (No establ ref range); CALCIUM 8.1 mg/dL (8.5-10.1); CREATININE 1.47 mg/dL (0.70-1.30); EST CRCL DRUG DOSING (CG) 34.25 mL/min; PROTEIN TOTAL,TP 6.2 g/dL (6.4-8.2)
[2023-04-17 06:58] LABS: A/G RATIO 0.55
[2023-04-17] MEDS: Metoprolol Succinate 25 MG Tab.ER PO SCH (08:24)
[2023-04-17] MEDS ORDERED: 50% Dextrose in Water 50 ML Syringe IVPUSH PRN (20:42)
[2023-04-17] MEDS ORDERED: Glucagon,Human Recombinant 1 MG Vial IM PRN (20:42)
[2023-04-18 06:29] LABS: BASOPHILS PERCENT AUTO 0.5 % (0.0-1.0); EOSINOPHILS PERCENT AUTO 4.9 % (1.0-3.0); HEMATOCRIT 25.2 % (40.0-54.0); HEMOGLOBIN 7.7 g/dL (14.0-18.0); MEAN CORPUSCULAR HEMOGLOBIN 25.7 pg (27.0-34.0); MEAN CORPUSCULAR HGB CONC 30.6 g/dL (33.0-35.0); MONOCYTES PERCENT AUTO 9.1 % (2-8); NEUTROPHILS PERCENT AUTO 64.5 % (42.2-75.2); PLATELET COUNT,PLT 163 10^3/uL (150-450); WHITE BLOOD CELL COUNT,WBC 6.4 10^3/uL (5.0-10.0)
[2023-04-18 06:56] LABS: ALBUMIN 2.4 g/dL (3.4-5.0); ANION GAP 7.2 mEq/L (7-13); BILIRUBIN TOTAL 0.3 mg/dL (0.2-1.0); BUN/CREATININE RATIO 18.6 (No establ ref range); C-REACTIVE PROTEIN 4.69 ng/dL (<=0.30); CALCIUM 8.3 mg/dL (8.5-10.1); CREATININE 1.77 mg/dL (0.70-1.30); EST CRCL DRUG DOSING (CG) 28.45 mL/min; POTASSIUM,K 4.2 mmol/L (3.5-5.1); PROTEIN TOTAL,TP 6.4 g/dL (6.4-8.2)
[2023-04-18 07:03] LABS: A/G RATIO 0.6
[2023-04-18] MEDS ORDERED: Insulin Lispro 100 Units/ML 3 ML Vial SUBCUT SCH (08:00)
[2023-04-18] MEDS: Metoprolol Succinate 25 MG Tab.ER PO SCH (08:22)
[2023-04-18] MEDS ORDERED: Loperamide 2 MG Cap PO ONE (10:51)
== END 2023-04-18 11:25 | disposition other institution (70) | DRG 439 ==
LOC: DL.ED 16:00 → UNDOADMOB 20:19 → INTOOBSV 20:19 → DL.MS 20:19 → OBSVTOIN 04-16 16:47
PROVIDERS: ADMIT Internal Medicine; ATTEND Internal Medicine
DX: K85.01 Idiopathic acute pancreatitis with uninfected necrosis (principal); E87.1 Hypo-osmolality and hyponatremia; I13.0 Hypertensive heart and chronic kidney disease with heart failure and stage 1 through stage 4 chronic kidney disease, or unspecified chronic kidney disease; I31.39 Other pericardial effusion (noninflammatory); K85.81 Other acute pancreatitis with uninfected necrosis; I50.32 Chronic diastolic (congestive) heart failure; J90 Pleural effusion, not elsewhere classified; E11.9 Type 2 diabetes mellitus without complications; I10 Essential (primary) hypertension; N40.0 Benign prostatic hyperplasia without lower urinary tract symptoms; M19.90 Unspecified osteoarthritis, unspecified site; M54.9 Dorsalgia, unspecified; G89.29 Other chronic pain; E11.22 Type 2 diabetes mellitus with diabetic chronic kidney disease; E66.9 Obesity, unspecified; I48.0 Paroxysmal atrial fibrillation; R09.02 Hypoxemia; N18.30 Chronic kidney disease, stage 3 unspecified; E11.40 Type 2 diabetes mellitus with diabetic neuropathy, unspecified; F32.A Depression, unspecified; G47.00 Insomnia, unspecified; M81.0 Age-related osteoporosis without current pathological fracture; D50.9 Iron deficiency anemia, unspecified; D63.1 Anemia in chronic kidney disease; E87.8 Other disorders of electrolyte and fluid balance, not elsewhere classified; E11.65 Type 2 diabetes mellitus with hyperglycemia; R79.82 Elevated C-reactive protein (CRP); E88.09 Other disorders of plasma-protein metabolism, not elsewhere classified; E83.42 Hypomagnesemia; M47.819 Spondylosis without myelopathy or radiculopathy, site unspecified; I27.20 Pulmonary hypertension, unspecified; Z88.8 Allergy status to other drugs, medicaments and biological substances; I25.10 Atherosclerotic heart disease of native coronary artery without angina pectoris; E78.00 Pure hypercholesterolemia, unspecified; Z79.84 Long term (current) use of oral hypoglycemic drugs; K21.9 Gastro-esophageal reflux disease without esophagitis; Z68.26 Body mass index [BMI] 26.0-26.9, adult; Z90.49 Acquired absence of other specified parts of digestive tract; Z98.890 Other specified postprocedural states; Z99.81 Dependence on supplemental oxygen; Z79.02 Long term (current) use of antithrombotics/antiplatelets; Z79.899 Other long term (current) drug therapy; Z95.5 Presence of coronary angioplasty implant and graft
CPT/HCPCS: 36415; 71250; 80053; 80061; 81001; 82150; 82947; 83605; 83615; 83690; 83735; 84145; 85025; 85610; 85730; 86140; 96365; 96366; 96375; 96376; 99222; 99232; 99238; 99285; 99285-25; A9270-GY; J0360; J1815-GY; J2270; J3010; J3475; J3490; J7030; J7042

== ENCOUNTER 2023-11-22 15:11 | Inpatient (IN) | payer MEDICARE, BC ==
[2023-11-22 16:05] LABS: ALBUMIN 3.3 g/dL (3.4-5.0); BUN/CREATININE RATIO 14.3 (No establ ref range); CALCIUM 8.2 mg/dL (8.5-10.1); CREATININE 3.78 mg/dL (0.70-1.30); EST CRCL DRUG DOSING (CG) 13.07 mL/min; PROTEIN TOTAL,TP 7.6 g/dL (6.4-8.2)
[2023-11-22 16:10] LABS: A/G RATIO 0.77
[2023-11-22] MEDS: Aspirin 81 MG Tab.Chew PO ONE (16:20)
[2023-11-22] MEDS: Sodium Chloride 0.9% 10 ML Syringe FLUSH PRN (16:30)
[2023-11-22] MEDS: Aspirin 81 MG Tab.Chew ONE (16:30)
[2023-11-22 16:31] LABS: BASOPHILS PERCENT AUTO 0.2 % (0.0-1.0); EOSINOPHILS PERCENT AUTO 3.2 % (1.0-3.0); HEMATOCRIT 28.3 % (40.0-54.0); HEMOGLOBIN 8.7 g/dL (14.0-18.0); MEAN CORPUSCULAR HEMOGLOBIN 31.5 pg (27.0-34.0); MEAN CORPUSCULAR HGB CONC 30.7 g/dL (33.0-35.0); MEAN CORPUSCULAR VOLUME 102.5 fL (80-100); NEUTROPHILS PERCENT AUTO 70.6 % (42.2-75.2); PLATELET COUNT,PLT 136 10^3/uL (150-450); RED BLOOD CELL COUNT 2.76 10^6/uL (4.6-6.2)
[2023-11-22 16:38] LABS: INR 1.2 (0.9-1.2); PROTHROMBIN TIME 12.1 SEC (9.0-12.0)
[2023-11-22 17:26] LABS: CORONAVIRUS COVID-19 NAA NEGATIVE (NEGATIVE); INFLUENZA A NAA NEGATIVE (NEGATIVE); INFLUENZA B NAA NEGATIVE (NEGATIVE); RESPIRATORY SYNCYTIAL VIR NAA NEGATIVE (NEGATIVE)
[2023-11-22] MEDS: Furosemide 40 MG/4 ML VIAL IVPUSH ONE (18:31)
[2023-11-22] MEDS ORDERED: Magnesium Hydroxide 400 MG/5 ML Susp 30 ML Cup PO PRN (20:32)
[2023-11-22] MEDS ORDERED: Polyethylene Glycol 3350 Powder 17 GM Packet PO PRN (20:32)
[2023-11-22] MEDS ORDERED: Acetaminophen 325 MG Tab PO PRN (20:32)
[2023-11-22] MEDS ORDERED: Albuterol/Ipratropium 3.0-0.5 MG/3 ML Neb Soln NEB PRN (20:32)
[2023-11-22] MEDS ORDERED: Naloxone 2 MG/2 ML Syringe IVPUSH PRN (20:32)
[2023-11-22] MEDS ORDERED: Melatonin 3 MG Tab PO PRN (20:32)
[2023-11-22] MEDS ORDERED: Ondansetron 4 MG/2 ML SDV IVPUSH PRN (20:32)
[2023-11-23] MEDS: HYDROmorphone 0.5 MG/0.5 ML Syringe IVPUSH PRN (01:49)
[2023-11-23 06:32] LABS: BASOPHILS PERCENT AUTO 0.5 % (0.0-1.0); EOSINOPHILS PERCENT AUTO 2.1 % (1.0-3.0); HEMATOCRIT 23.9 % (40.0-54.0); HEMOGLOBIN 7.8 g/dL (14.0-18.0); LYMPHOCYTES PERCENT AUTO 21.2 % (20.5-50.1); MEAN CORPUSCULAR HEMOGLOBIN 30.8 pg (27.0-34.0); MEAN CORPUSCULAR HGB CONC 32.6 g/dL (33.0-35.0); MEAN CORPUSCULAR VOLUME 94.5 fL (80-100); MONOCYTES PERCENT AUTO 6.1 % (2-8); NEUTROPHILS PERCENT AUTO 70.1 % (42.2-75.2); PLATELET COUNT,PLT 127 10^3/uL (150-450); RED BLOOD CELL COUNT 2.53 10^6/uL (4.6-6.2); WHITE BLOOD CELL COUNT,WBC 4.3 10^3/uL (5.0-10.0)
[2023-11-23 06:56] LABS: ANION GAP 14.2 mEq/L (7-13); BILIRUBIN TOTAL 1.3 mg/dL (0.2-1.0); BUN/CREATININE RATIO 14.7 (No establ ref range); CALCIUM 8.3 mg/dL (8.5-10.1); CREATININE 3.75 mg/dL (0.70-1.30); EST CRCL DRUG DOSING (CG) 13.17 mL/min; MAGNESIUM 1.9 mg/dL (1.8-2.4); POTASSIUM,K 4.2 mmol/L (3.5-5.1)
[2023-11-23 06:57] LABS: A/G RATIO 0.75
[2023-11-23] MEDS ORDERED: Nitroglycerin 0.4 MG Tab.SL SL PRN (09:09)
[2023-11-23] MEDS ORDERED: Glimepiride 2 MG Tab PO SCH (10:00)
[2023-11-23] MEDS ORDERED: HYDRALAZINE 50 MG PO SCH (10:00)
[2023-11-23] MEDS: Furosemide 40 MG/4 ML VIAL IVPUSH ONE (10:06)
[2023-11-23] MEDS: Sertraline 50 MG Tab PO SCH (10:10)
[2023-11-23] MEDS: Clopidogrel 75 MG Tab PO SCH (10:11)
[2023-11-23] MEDS: Metoprolol Succinate 25 MG Tab.ER PO SCH (10:11)
[2023-11-23] MEDS: Isosorbide Mononitrate 30 MG Tab.ER PO SCH (10:11)
[2023-11-23] MEDS: hydrALAZINE 25 MG Tab PO SCH (10:12)
[2023-11-23] MEDS ORDERED: Glucagon,Human Recombinant 1 MG Vial IM PRN (10:48)
[2023-11-23] MEDS ORDERED: 50% Dextrose in Water 50 ML Syringe IVPUSH PRN (10:48)
[2023-11-23] MEDS ORDERED: Insulin Lispro 100 Units/ML 3 ML Vial SUBCUT SCH (12:00)
[2023-11-23] MEDS: Ferrous Sulfate 325 MG Tab PO SCH (12:12)
[2023-11-23] MEDS: Glimepiride 2 MG Tab PO SCH (12:12)
[2023-11-23] MEDS: Insulin Lispro 100 Units/ML 3 ML Vial SUBCUT SCH (17:08)
[2023-11-23] MEDS: Sennosides/Docusate Sodium 50-8.6 MG Tab PO PRN (21:32)
[2023-11-24 06:21] LABS: BASOPHILS PERCENT AUTO 0.5 % (0.0-1.0); HEMATOCRIT 23.6 % (40.0-54.0); HEMOGLOBIN 7.6 g/dL (14.0-18.0); LYMPHOCYTES PERCENT AUTO 25.1 % (20.5-50.1); MEAN CORPUSCULAR HEMOGLOBIN 30.5 pg (27.0-34.0); MEAN CORPUSCULAR HGB CONC 32.2 g/dL (33.0-35.0); MEAN CORPUSCULAR VOLUME 94.8 fL (80-100); MONOCYTES PERCENT AUTO 9.2 % (2-8); NEUTROPHILS PERCENT AUTO 61.2 % (42.2-75.2); PLATELET COUNT,PLT 120 10^3/uL (150-450); RED BLOOD CELL COUNT 2.49 10^6/uL (4.6-6.2); WHITE BLOOD CELL COUNT,WBC 3.7 10^3/uL (5.0-10.0)
[2023-11-24 06:58] LABS: ALBUMIN 2.9 g/dL (3.4-5.0); ANION GAP 13.2 mEq/L (7-13); BILIRUBIN TOTAL 1.1 mg/dL (0.2-1.0); BUN/CREATININE RATIO 15.1 (No establ ref range); CALCIUM 8.1 mg/dL (8.5-10.1); CREATININE 4.04 mg/dL (0.70-1.30); EST CRCL DRUG DOSING (CG) 12.23 mL/min; MAGNESIUM 1.8 mg/dL (1.8-2.4); POTASSIUM,K 4.2 mmol/L (3.5-5.1); PROTEIN TOTAL,TP 6.9 g/dL (6.4-8.2)
[2023-11-24 07:00] LABS: A/G RATIO 0.73
== END 2023-11-24 13:33 | disposition home or self-care (01) | DRG 291 ==
LOC: DL.ED 15:11 → DL.MS 18:35 → DL.ED 18:38
PROVIDERS: ADMIT Internal Medicine; ATTEND Internal Medicine
DX: I11.0 Hypertensive heart disease with heart failure (principal); I50.9 Heart failure, unspecified; I25.10 Atherosclerotic heart disease of native coronary artery without angina pectoris; I10 Essential (primary) hypertension; I13.0 Hypertensive heart and chronic kidney disease with heart failure and stage 1 through stage 4 chronic kidney disease, or unspecified chronic kidney disease; E11.9 Type 2 diabetes mellitus without complications; I50.33 Acute on chronic diastolic (congestive) heart failure; Z68.27 Body mass index [BMI] 27.0-27.9, adult; J96.21 Acute and chronic respiratory failure with hypoxia; E11.22 Type 2 diabetes mellitus with diabetic chronic kidney disease; Z66 Do not resuscitate; N18.30 Chronic kidney disease, stage 3 unspecified; Z11.52 Encounter for screening for COVID-19; J45.909 Unspecified asthma, uncomplicated; E78.00 Pure hypercholesterolemia, unspecified; K21.9 Gastro-esophageal reflux disease without esophagitis; N40.0 Benign prostatic hyperplasia without lower urinary tract symptoms; M19.90 Unspecified osteoarthritis, unspecified site; G89.29 Other chronic pain; M54.9 Dorsalgia, unspecified; E66.9 Obesity, unspecified; D50.9 Iron deficiency anemia, unspecified; I25.119 Atherosclerotic heart disease of native coronary artery with unspecified angina pectoris; D63.1 Anemia in chronic kidney disease; E11.40 Type 2 diabetes mellitus with diabetic neuropathy, unspecified; F32.A Depression, unspecified; M47.9 Spondylosis, unspecified; M81.0 Age-related osteoporosis without current pathological fracture; G47.00 Insomnia, unspecified; I48.0 Paroxysmal atrial fibrillation; E11.65 Type 2 diabetes mellitus with hyperglycemia; E88.09 Other disorders of plasma-protein metabolism, not elsewhere classified; D72.819 Decreased white blood cell count, unspecified; H90.5 Unspecified sensorineural hearing loss; D53.9 Nutritional anemia, unspecified; Z95.5 Presence of coronary angioplasty implant and graft; Z88.8 Allergy status to other drugs, medicaments and biological substances; Z79.51 Long term (current) use of inhaled steroids; Z79.84 Long term (current) use of oral hypoglycemic drugs; Z79.899 Other long term (current) drug therapy; Z68.25 Body mass index [BMI] 25.0-25.9, adult; Z90.49 Acquired absence of other specified parts of digestive tract; Z87.01 Personal history of pneumonia (recurrent)
CPT/HCPCS: 0241U; 36415; 71046; 80053; 82947; 83605; 83735; 83880; 84484; 85025; 85610; 86140; 93005; 97161; 97165; 99223; 93010; 99284; A9270-GY; J1170; J1940; J3490